=== PATIENT | male | born 1950 | race Two or more races ===

== ENCOUNTER 2023-09-08 11:16 | Inpatient (IN) | payer OTHER ==
[~2023-09-08] VITALS: Ht 172.7 cm; Wt 66.7 kg
[2023-09-08] MEDS ORDERED: RINGERS SOLUTION,LACTATED 1,000 ML IV STA (13:35)
[2023-09-08 14:46] LABS: HEMATOCRIT 30.7 % (39.0-48.0); HEMOGLOBIN 10.3 g/dL (13-16.00); MEAN CELL VOLUME 86.8 fL (80.0-100.00); MEAN CORPUSCULAR HEMOGLOBIN 29.2 pg (27.00-32.0); MEAN CORPUSCULAR HGB CONC 33.7 g/dl (32.0-36.0); PLATELET COUNT 333 K/uL (150-450); RED BLOOD COUNT 3.53 M/uL (4.00-6.00); RED CELL DISTRIBUTION WIDTH 13.7 % (11.5-14.5)
[2023-09-08] MEDS ORDERED: MEPERIDINE HCL/PF 50 MG/ML VIAL IM STA (14:49)
[2023-09-08 15:17] LABS: ALBUMIN 3.1 gm/dL (3.4-5.0); BILIRUBIN TOTAL 0.66 mg/dL (0.3-1.2); BILIRUBIN,CONJUGATED 0.19 mg/dL (0.0-0.2); BILIRUBIN,UNCONJUGATED 0.47 mg/dL (0.0-0.6); CALCIUM 8.6 mg/dL (8.5-10.1); CREATININE SERUM 0.46 mg/dL (0.70-1.30); GFR 180.47; POTASSIUM 4.15 mEq/L (3.5-5.1); TOTAL PROTEIN 6.5 gm/dL (6.4-8.2)
[2023-09-08 15:29] LABS: INR 1.14; PARTIAL THROMBOPLASTIN TIME 28.3 SECONDS (22.0-34.0); PROTHROMBIN TIME 11.9 SECONDS (9.0-11.5)
[2023-09-08 15:55] LABS: URINE APPEARANCE Clear; URINE BILIRRUBIN Negative (NEGATIVE); URINE BLOOD Negative; URINE COLOR Dark Yellow; URINE GLUCOSE Negative (NEGATIVE); URINE LEUKOCYTE Negative; URINE NITRATE Negative; URINE PROTEIN Negative (NEGATIVE)
[2023-09-08 15:56] LABS: URINE BACTERIA 12.5 uL (0.0-1933); URINE RBC 13.2 uL (0.0-20.8); URINE WBC 2.7 uL (0.0-23.2)
[2023-09-08 16:14] LABS: URINE CRYSTALS FEW /HPF
[2023-09-08] MEDS ORDERED: CEFAZOLIN SODIUM 1,000 MG VIAL ONE (17:17)
[2023-09-08] MEDS ORDERED: BUPIVACAINE HCL/PF 0.5% 30ML ML ONE (17:18)
[2023-09-08 18:06] LABS: RH POSITIVE
[2023-09-08] MEDS ORDERED: BUPIVACAINE HCL 30 ML VIAL IJ ONE (19:00)
[2023-09-08] MEDS ORDERED: CEFAZOLIN SODIUM 1,000 MG VIAL IV ONE (19:00)
[2023-09-08] MEDS ORDERED: SODIUM CHLORIDE 0.45 % 1,000 ML IV SCH (19:15)
[2023-09-08] MEDS ORDERED: PROMETHAZINE HCL 50 MG/ML AMPUL IM PRN (19:15)
[2023-09-08] MEDS ORDERED: MEPERIDINE HCL/PF 50 MG/ML VIAL IM PRN (19:15)
[2023-09-08] MEDS ORDERED: TRAMADOL HCL 50 MG TABLET PO PRN (19:15)
[2023-09-08] MEDS ORDERED: ONDANSETRON HCL 2 MG/ML VIAL IV PRN (19:15)
[2023-09-08] MEDS ORDERED: ONDANSETRON 4 MG TAB.RAPDIS PO PRN (19:15)
[2023-09-08] MEDS ORDERED: KETOROLAC TROMETHAMINE 10 MG TABLET PO SCH (21:00)
[2023-09-08] MEDS ORDERED: ACETAMINOPHEN 325 MG TABLET PO SCH (21:00)
[2023-09-09] MEDS ORDERED: CELECOXIB 200 MG CAPSULE PO SCH (01:00)
[2023-09-09] MEDS ORDERED: CEFAZOLIN SODIUM 1,000 MG VIAL IV SCH (01:00)
[2023-09-09] MEDS ORDERED: PANTOPRAZOLE SODIUM 40 MG TABLET.DR PO SCH (09:00)
[2023-09-09] MEDS ORDERED: RIVAROXABAN 10 MG TAB PO SCH (09:00)
[2023-09-10 05:13] LABS: HEMATOCRIT 27.2 % (39.0-48.0); MEAN CELL VOLUME 86.4 fL (80.0-100.00); MEAN CORPUSCULAR HEMOGLOBIN 29.8 pg (27.00-32.0); MEAN CORPUSCULAR HGB CONC 34.5 g/dl (32.0-36.0); PLATELET COUNT 285 K/uL (150-450); RED BLOOD COUNT 3.15 M/uL (4.00-6.00); RED CELL DISTRIBUTION WIDTH 13.4 % (11.5-14.5)
[2023-09-10 05:21] LABS: HEMOGLOBIN 9.4 g/dL (13-16.00)
[2023-09-10] MEDS ORDERED: SENNA/DOCUSATE SODIUM 1 TAB TABLET PO SCH (09:00)
[2023-09-10] MEDS ORDERED: XARELTO10 MG PO (14:28)
[2023-09-10] MEDS ORDERED: CELEBREX200MG PO (14:29)
[2023-09-10] MEDS ORDERED: NEURONTIN300 MG PO (14:30)
== END 2023-09-10 17:51 | DRG 482 ==
LOC: ER 11:16 → SEC-K 15:24 → O/R 15:24 → SURH 21:00
PROVIDERS: General Practice; Orthopaedic Surgery; ADMIT Specialist; ATTEND Specialist
PROC: 0QU60JZ Supplement Right Upper Femur with Synthetic Substitute, Open Approach (ICD-10-PCS; 2023-09-08)
PROC: 0QS606Z Reposition Right Upper Femur with Intramedullary Internal Fixation Device, Open Approach (ICD-10-PCS; principal; 2023-09-08 17:00)
DX: S72.141A Displaced intertrochanteric fracture of right femur, initial encounter for closed fracture (principal); W19.XXXA Unspecified fall, initial encounter; Y93.9 Activity, unspecified; Y92.9 Unspecified place or not applicable; Y99.9 Unspecified external cause status

== ENCOUNTER 2023-09-30 14:15 | Outpatient (CLI) | payer OTHER ==
[~2023-09-30 14:15] MED LIST: CELEBREX200MG PO; NEURONTIN300 MG PO; XARELTO10 MG PO
== END 2023-09-30 14:17 | disposition home or self-care (01) ==
LOC: RAD 14:15
PROVIDERS: ATTEND Orthopaedic Surgery
DX: S72.144D Nondisplaced intertrochanteric fracture of right femur, subsequent encounter for closed fracture with routine healing (principal)